=== PATIENT | male | born 1990 | race Caucasian/White ===

== ENCOUNTER 2019-07-05 15:32 | Outpatient (CLI) | payer MEDICARE, SELFPAY ==
--- NOTE | 2019-07-05 | XRR_ITS ---
PROCEDURE INFORMATION: Exam: XR Thoracic Spine, 3 Views Exam date and time: 07/05/2019 4:05 PM Age: 29 years old Clinical indication: Pain in thoracic spine; Additional info: Back pain TECHNIQUE: Imaging protocol: XR of the thoracic spine, 3 views. COMPARISON: No relevant prior studies available. FINDINGS: Vertebrae: Chronic appearing mild anterior wedging deformities are noted in the mid and lower thoracic spine. There are mild diffuse degenerative changes. No acute fracture or bony destruction. Soft tissues: Normal. XR/XR thoracic spine 3V* [id number] IMPRESSION: 1. Chronic appearing mild anterior wedging deformities are noted in the mid and lower thoracic spine. 2. No acute bony abnormality.
--- NOTE | 2019-07-05 | XRR_ITS ---
PROCEDURE INFORMATION: Exam: XR Lumbosacral Spine, 2 or 3 Views Exam date and time: 07/05/2019 4:05 PM Age: 29 years old Clinical indication: Low back pain TECHNIQUE: Imaging protocol: XR of the lumbosacral spine, 2 or 3 views. COMPARISON: No relevant prior studies available. FINDINGS: Vertebrae: There is chronic appearing mild anterior wedging of T11 and T12. No acute fracture. No subluxation. Disc spaces are maintained. Moderate facet degenerative changes are noted in the lower lumbar spine. No acute fracture. No spondylolysis. Soft tissues: Normal. XR/XR lumbar spine 2-3V* [id number] IMPRESSION: There is chronic appearing mild anterior wedging of T11 and T12. No acute bony abnormality.
== END 2019-07-05 15:33 | disposition home or self-care (01) ==
LOC: RAD 15:44
PROVIDERS: Family Provider Nurse Practitioner Family; PCP Nurse Practitioner Family; Visit Provider Nurse Practitioner Family
DX: M54.6 Pain in thoracic spine (principal)
CPT/HCPCS: 72072; 72100

== ENCOUNTER 2023-02-26 18:05 | Emergency (ER) | payer MEDICARE, MEDICAID, SELFPAY ==
[2023-02-26 18:25] VITALS: BP 127/88; PULSE 122; RESP 18; TEMP 36.6; O2SAT 98; BMI 31.3
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
[2023-02-26] MEDS: HYDROcodone-acetaminophen 5-325 mg Tablet 1 TAB PO (19:46)
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
[2023-02-26 21:49] VITALS: BP 124/78; PULSE 110; RESP 18; O2SAT 98
== END 2023-02-26 21:50 | disposition home or self-care (01) ==
PROVIDERS: Emergency Provider Nurse Practitioner Family; Family Provider Nurse Practitioner Family
DX: Z04.1 Encounter for examination and observation following transport accident (principal); S29.012A Strain of muscle and tendon of back wall of thorax, initial encounter; T14.8XXA Other injury of unspecified body region, initial encounter; M17.11 Unilateral primary osteoarthritis, right knee; F17.220 Nicotine dependence, chewing tobacco, uncomplicated; V43.53XA Car driver injured in collision with pick-up truck in traffic accident, initial encounter
CPT/HCPCS: 71046; 73080; 73562; 99284

== ENCOUNTER 2024-02-16 17:18 | Emergency (ER) | payer MEDICARE, MEDICAID, SELFPAY ==
[2024-02-16 17:31] VITALS: BP 151/92; PULSE 87; RESP 16; TEMP 36.7; O2SAT 98; BMI 34.3
--- NOTE | 2024-02-16 18:20 | ED_ITS ---
HPI - Eye Problem General: Chief complaint: Eye Problems Stated complaint: left eye injury Time Seen by Provider: 02/16/24 18:18 Source: patient Mode of arrival: ambulatory Limitations: no limitations History of Present Illness: Patient is a 34-year-old male who presents to ED today with complaint of possible corneal abrasion to his left eye. He states he was weed eating earlier today and felt some grass/debris into his eye. Patient states he was able to irrigate the eye feels like there still may be a scratch. chief complaint: eye pain and foreign body Onset (ago): hour(s) Onset description: sudden Duration: constant Location: left eye Eye Symptoms: pain Place: home Severity: mild Associated symptoms: Reports no associated symptoms Treatments Prior to Arrival: irrigated eye Related Data Previous Rx's Medication Instructions Recorded fluticasone propionate 50 2 spray intranasal DAILY #16 grams 06/15/22 mcg/actuation nasal spray,suspension (Flonase Allergy Relief) hydrocodone 5 mg-acetaminophen 325 1 tab PO Q8H PRN pain (scale score 02/26/23 mg tablet 7-10) #10 tabs ibuprofen 800 mg tablet 800 mg PO Q8H PRN pain #30 tabs 02/26/23 lidocaine 4 % topical patch 1 patch topical TID PRN pain #10 ea 03/04/23 Allergies Allergy/AdvReac Type Severity Reaction Status Date / Time No Known Allergies Allergy Verified 02/03/24 09:28 Review of Systems Eyes: Reports: eye discomfort; Denies: change in vision, blurry vision, blind spots, floaters or seeing flashes PFS ED PFSH: Medical History Seasonal allergies Social History Smoking and tobacco/nicotine status: never used tobacco/nicotine Quit status (tobacco/nicotine): not considering quitting Alcohol intake: current Alcohol intake frequency: holidays/special occasions only Substance/Drug Use: never Physical Exam Const: COMMON NORMALS: no acute distress, average body habitus, no limitations, healthy appearing and well nourished Eye: COMMON NORMALS: Equal, round and reactive pupils present, EOMs intact bilaterally and conjunctivae normal GENERAL EYE: appearance normal, both eyes and all related structures and normal light reflex VISUAL ACUITY: Yes acuity normal ALIGNMENT: Yes alignment normal PERIORBITAL: periorbital findings normal EYELID: eyelids normal CONJUNCTIVA: Yes conjunctivae normal SCLERA: sclerae normal CORNEA: Yes corneas normal and fluorescein used PUPIL: Yes Equal, round and reactive pupils present DIRECT OPHTHALMOSCOPY: Yes normal light reflex Course Vital Signs: Vital signs: Vital Signs Temperature 98.1 F 02/16/24 17:31 Pulse Rate 87 02/16/24 17:31 Respiratory Rate 16 02/16/24 17:31 Blood Pressure 151/92 02/16/24 17:31 Pulse Oximetry 98 02/16/24 17:31 Oxygen Delivery Me thod Room Air 02/16/24 17:31 MDM - Eye Problem Medical Decision Making No abnormal findings on fluorescein staining examination. Tetanus will be updated. Return precautions discussed. Medical Records I reviewed the patient's medical records. No radiology studies performed this visit Discharge Plan Discharge Patient Disposition: Home Clinical Impression: Eye irritation Condition: Stable Prescriptions: No Action lidocaine 4 % adhesive patch,medicated 1 patch topical TID PRN (Reason: pain) Qty: 10 1RF fluticasone propionate [Flonase Allergy Relief] 50 mcg/actuation spray,susp ension 2 spray intranasal DAILY Qty: 16 0RF Rx Instructions: administer into each nostril ibuprofen 800 mg tablet 800 mg PO Q8H PRN (Reason: pain) Qty: 30 0RF hydrocodone-acetaminophen 5-325 mg tablet 1 tab PO Q8H PRN (Reason: pain (scale score 7-10)) Qty: 10 0RF Discharge Orders: Discharge ED (Routine); Ordered 02/16/24 Ordered By: Araceli Brandon Referrals: Lois Brooks FNP [Family Provider] - Activity Restrictions/Additional Instructions: You may seek medical reevaluation for any worsening eye pain, severe redness or purulent drainage, foreign body sensation, visual changes/visual loss, or any other concerns you may have. 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
[2024-02-16] MEDS: tetracaine 0.5% Op Soln 4 mL Btl 1 DROP EYE-LEFT (18:40)
[2024-02-16] MEDS: fluorescein 1 mg Strip EYE-LEFT (18:40)
[2024-02-16] MEDS: tetanus-dipt-pertussis 0.5 mL SDV IM (18:48)
[2024-02-16 18:53] VITALS: BP 127/81; PULSE 78; O2SAT 98
[2024-02-16 19:18] VITALS: BP 121/88; PULSE 94; O2SAT 95
== END 2024-02-16 19:16 | disposition home or self-care (01) ==
PROVIDERS: Emergency Provider Physician Assistant; Family Provider Nurse Practitioner Family
DX: H57.12 Ocular pain, left eye (principal); Z23 Encounter for immunization
CPT/HCPCS: 90715; 99283

== ENCOUNTER 2025-01-05 13:31 | Emergency (ER) | payer MEDICARE, MEDICAID, SELFPAY ==
--- OUTSIDE RECORDS SUMMARY | 2024-12-28 09:58 | XMS_ITS | Encounter Summary ---
[facility] Address [address] [place] [address] Care Team Providers Care Master Merchandiser Name Role Phone Dominic Toure MD Primary Care Provider [phone] Reason for Referral * Radiology Services (Routine) - Closed Specialty Diagnoses / Procedures Referred By Contac t Referred To Contact Radiology Diagnoses Acute diarrhea Nausea and vomiting in adult Epigastric abdominal pain Procedures US ABDOMEN COMPLETE Dominic Toure MD [address] [place] [phone] Phone: tel: fax: [employer] [facility] [place] [address] [place] [address] Phone: tel: fax: Referral ID Status Reason Start Date Expiration Date Visits Re quested Visits Authorized [id number] Closed 12/25/2024 01/25/2026 1 1 Reason for Visit * Radiology Services (Routine) - Closed Specialty Diagnoses / Procedures Referred By Contac t Referred To Contact Radiology Diagnoses Acute diarrhea Nausea and vomiting in adult Epigastric abdominal pain Procedures US ABDOMEN COMPLETE Dominic Toure MD [address] [phone] Phone: tel: [facility]: [facility] [place] [address] [place] [address] Phone: tel: fax: Referral ID Status Reason Start Date Expiration Date Visits Re quested Visits Authorized [id number] Closed 12/25/2024 01/25/2026 1 1 Encounter Details Date Type Department Care Team (Latest Contact Info) Description 12/28/2024 9:58 AM CDT - 12/28/2024 11:59 PM CDT Hospital Encounter [facility] [place] [address] [facility] [address] [place] [phone] Dominic Toure MD [address] [place] [phone] Discharge Disposition: Home or Self Care Social History Tobacco Use Types Packs/Day Years Used Date Smoking Tobacco: Never Smokeless Tobacco: Current Chew Alcohol Use Standard Drinks/Week Comments Not Currently 0 (1 standard drink = 0.6 oz pur e alcohol) Sex and Gender Information Value Date Recorded Sex Assigned at Not on file Legal Sex Male 10:11 AM CDT Gender Identity Not on file Sexual Orientation Not on file documented as of this encounter Medications at Time of Discharge omeprazole (PriLOSEC) 20 mg Capsule, Delayed Release(E.C.)Indic ations:Gastroesoph ageal reflux disease without esophagitis Take 1 Capsule (20 mg) by mouth daily. 30 Capsule 2 12/25/2024 cetirizine (ZyrTEC) 10 mg tabletIndications: Seasonal allergic rhinitis due to pollen Take 1 Tablet (10 mg) by mouth daily. 30 Tablet 2 12/25/2024 famotidine (PEPCID) 20 mg tabletIndications: Gastroesophageal reflux disease without esophagitis TAKE ONE TABLET BY MOUTH TWICE A DAY 180 Tablet 11/29/2024 homeopathic drugs (ALLERGY RELIEF ORAL) Take by mouth. documented as of this encounter Plan of Treatment Upcoming Encounters Date Type Department Care Team (Late st Contact Info) Description 01/05/2025 2:30 PM CDT Appointment [facility] [place] [address] [facility] [address] [place] [phone] Dominic Toure MD [address] [phone] 03/27/2025 1:00 PM CDT Office Visit [facility] [address], [place] [address] Luzmaria Nguyen, OIL SPECULATOR [address] [place] [phone] documented as of this encounter Procedures Procedure Name Priority Date/Time Associated Diagnosis Comments US ABDOMEN COMPLETE Routine 12/28/2024 1 0:41 AM CDT Acute diarrhea Nausea and vomiting in adult Epigastric abdominal pain documented in this encounter Results * US ABDOMEN COMPLETE (12/28/2024 10:41 AM CDT) Anatomical Region Laterality Modality Abdomen Ultrasound 12/28/2024 10:4 1 AM CDT Impressions 12/30/2024 10:03 AM CDT IMPRESSION: Please see below. Exam: US ABDOMEN COMPLETE Date/Time of Exam: 12/28/2024 10:41 AM Reason For Exam: See Diagnosis Diagnosis: Acute diarrhea; Nausea and vomiting in adult; Epigastric abdominal pain Findings: COMPARISON: None. LIVER Normal size, normal echogenicity, normal shape with smooth contour. No concerning hepatic lesion. GALLBLADDER Gallbladder sludge. Wall thickness at 4.4 mm (normal <3mm). Sonographic Rodríguez sign: Negative. BILE DUCTS Common bile duct 3.0 mm. PANCREAS Not well seen due to overlying bowel gas. SPLEEN No focal lesions. Length 12.6 cm. RIGHT KIDNEY Length 12.0 cm Normal size and morphology. No hydronephrosis. No nephrolithiasis. No concerning renal lesion. LEFT KIDNEY Length 11.3 cm Normal size and morphology. No hydronephrosis. No nephrolithiasis. No concerning renal lesion. PERITONEUM / ASCITES Not visualized ABDOMINAL AORTA/IVC IVC unremarkable. The aorta is not visualized. IMPRESSION: 1. Gallbladder sludge with thickened gallbladder wall without sonographic Rodríguez sign. This is not confirmed acute cholecystitis and could represent reactive wall thickening from adjacent hepatic inflammation. Place with LFTs needed. If there is continued concern for acute or chronic cholecystitis, nuclear medicine HIDA scan could be performed. 2. Otherwise unremarkable limited exam as above. Narrative Procedure Note Luis Pitt MD - 12/30/2024 IMPRESSION: Please see below. Exam: US ABDOMEN COMPLETE Date/Time of Exam: 12/28/2024 10:41 AM Reason For Exam: See Diagnosis Diagnosis: Acute diarrhea; Nausea and vomiting in adult; Epigastric abdominal pain Findings: COMPARISON: None. LIVER Normal size, normal echogenicity, normal shape with smooth contour. No concerning hepatic lesion. GALLBLADDER Gallbladder sludge. Wall thickness at 4.4 mm (normal <3mm). Sonographic Rodríguez sign: Negative. BILE DUCTS Common bile duct 3.0 mm. PANCREAS Not well seen due to overlying bowel gas. SPLEEN No focal lesions. Length 12.6 cm. RIGHT KIDNEY Length 12.0 cm Normal size and morphology. No hydronephrosis. No nephrolithiasis. No concerning renal lesion. LEFT KIDNEY Length 11.3 cm Normal size and morphology. No hydronephrosis. No nephrolithiasis. No concerning renal lesion. PERITONEUM / ASCITES Not visualized ABDOMINAL AORTA/IVC IVC unremarkable. The aorta is not visualized. IMPRESSION: 1. Gallbladder sludge with thickened gallbladder wall without sonographic Rodríguez sign. This is not confirmed acute cholecystitis and could represent reactive wall thickening from adjacent hepatic inflammation. Place with LFTs needed. If there is continued concern for acute or chronic cholecystitis, nuclear medicine HIDA scan could be performed. 2. Otherwise unremarkable limited exam as above. Dominic Toure MD US ORDERABLES Final Result documented in this encounter Visit Diagnoses Diagnosis Acute diarrhea Diarrhea Nausea and vomiting in adult Nausea with vomiting Epigastric abdominal pain Abdominal pain, epigastric documented in this encounter Care Teams Master Merchandiser Relationship Specialty Start Date End Date Dominic Toure MD [address] [place] [phone] PCP - General Family Practice 06/01/24 documented as of this encounter
--- OUTSIDE RECORDS SUMMARY | 2025-01-05 10:30 | XMS_ITS | Encounter Summary ---
Author Organization [facility] Address [address] [place] [address] Care Team Providers Care Critical Care Physician Assistant Name Role Phone Dominic Toure MD Primary Care Provider [phone] Reason for Visit * Nuclear Medicine (Routine) - Authorized Specialty Diagnoses / Procedures Referred By Priyank raygoza Referred To Contact Radiology Diagnoses Epigastric abdominal pain Procedures NM HEPATOBILIARY SCAN Dominic Toure MD [address] [phone] Phone: tel: fax: [facility] Nuclear Medicine [address] [place] [phone] Phone: tel: fax: Referral ID Status Reason Start Date Expiration Date Visits Requested Visits Authorized [id number] Authorized SGF CTS to Schedule 01/04/2025 02/18/2025 1 1 Encounter Details Date Type Department Care Team (Late st Contact Info) Description 01/05/2025 10:30 AM CDT Hospital Encounter [facility] Nuclear Medicine [address] [place] [phone] Dominic Toure MD [address] [phone] Social History Tobacco Use Types Packs/Day Years [...] on file documented as of this encounter Plan of Treatment Upcoming Encounters Date Type Department Care Team (Late st Contact Info) Description 01/05/2025 2:30 PM CDT Appointment [facility] [place] [address] [place] [address] Dominic Toure MD [address] [phone] 03/27/2025 1:00 PM CDT Office Visit [facility] [address] [phone] Luzmaria Nguyen FNP [address] [place] [phone] Scheduled Orders Name Type Priority Associated Diagnoses Orde r Schedule NM HEPATOBILIARY SCAN Imaging Routine Epigastric abdominal pain 1 Occurrences starting 01/01/2025 until 01/01/2026 documented as of this encounter Visit Diagnoses Not on filedocumented in this encounter Care Teams Critical Care Physician Assistant Relationship Specialty Start Date End Date Dominic Toure MD [address] [phone] PCP - General Family Practice 06/01/24 documented as of this encounter
[2025-01-05 13:35] VITALS: BP 138/97; PULSE 100; RESP 16; TEMP 36.4; O2SAT 100; BMI 30.2
--- OUTSIDE RECORDS SUMMARY | 2025-01-05 13:36 | XMS_ITS | Encounter Summary ---
Author Organization [facility] Address [address] [place] [address] Care Team Providers Care Engineer Geophysical Laboratory Name Role Phone Dominic Toure MD Primary Care Provider [phone] Reason for Visit * Reason Comments Results Encounter Details Date Type Department Care Team ([facility] st Contact Info) Description 12/29/[address] [facility] Medicine [address] [phone] Dominic Toure MD [address] [place] [phone] Results Social History Tobacco Use Types Packs/Day Years [...] on file documented as of this encounter Miscellaneous Notes * Telephone Encounter - Francy Pacheco LPN - 12/29/2024 11:44 AM CDT Will contact patient when results are available.Francy Pacheco LPN, 12/29/2024 11:45 AM * Telephone Encounter - Mark Sierra - 12/29/2024 11:35 AM CDT Copied from [facility] #[id number]. Topic: CPA Information Request - Results >> Dec 29, 2024 11:33 AM Mark Simon wrote: Caller is requesting information about results from an order. ? Caller Name: Cherelle King () Callback Number: Test Name: US HUIZAR COMPLETE [[id number]] ( (Order [id number]) Results Encounter notes are: Telephone encounter related to results is not available and was completed less than 7 days Call Notes: Results were not given and the patient needs a call back once results have been reviewed. documented in this encounter Plan of Treatment Upcoming Encounters Date Type Department Care Team (Late st Contact Info) Description 01/05/2025 2:30 PM CDT Appointment [facility] CT Scan [place] [address] [place] [address] Dominic Toure MD [address] [phone] 03/27/2025 1:00 PM CDT Office Visit [facility] [address] [place] [phone] Luzmaria Nguyen FNP [address] [place] [phone] documented as of this encounter Visit Diagnoses Not on filedocumented in this encounter Care Teams Engineer Geophysical Laboratory Relationship Specialty Start Date End Date Dominic Toure MD [address] [phone] PCP - General Family Practice 06/01/24 documented as of this encounter
--- OUTSIDE RECORDS SUMMARY | 2025-01-05 13:36 | XMS_ITS | Encounter Summary ---
Author Organization [facility] Address [address] [place] [address] Care Team Providers Care Slitter Helper Name Role Phone Dominic Toure MD Primary Care Provider [phone] Reason for Referral * Nuclear Medicine (Routine) - Authorized Specialty Diagnoses / Procedures Referred By Priyank raygoza Referred To Contact Radiology Diagnoses Epigastric abdominal pain Procedures NM HEPATOBILIARY SCAN Dominic Toure MD [address] [place] [phone] Phone: tel: fax: [facility] Nuclear Medicine [address] [place] [phone] Phone: tel: fax: Referral ID Status Reason Start Date Expiration Date Visits Requested Visits Authorized [id number] Authorized SGF CTS to Schedule 01/04/2025 02/18/2025 1 1 Encounter Details Date Type Department Care Team (Latest Contact Info) Description 12/29/2024 Results Follow-Up [facility] Family Medicine [place] [address] [address] Dominic Toure MD [address] [place] [phone] COMPREHENSIVE METABOLIC PANEL, TRANSGLUTAMINASE IGG ANTIBODY, US ABDOMEN COMPLETE Social History Tobacco Use Types Packs/Day Years [...] encounter Miscellaneous Notes * Telephone Encounter - Shaila Allen LPN - 01/01/2025 12:55 PM CDT 01/01/2025 12:55 PM Called and notified patient of results. Voiced understanding. Patient states that his pain is the same but now he is having trouble where he can't eat due to throwing up. Would like the referral for the HIDA scan placed. Shaila AMANDA * Telephone Encounter - Shaila Allen LPN - 01/01/2025 12:52 PM CDT ----- Message from Nisha Marte sent at 01/01/2025 12:14 PM CDT ----- Per Luis N's need to call on this, result is abnormal. ----- Message ----- From: Shaila Allen LPN Sent: 01/01/2025 10:03 AM CDT To: [facility] [address] Assista# ----- Message ----- From: Dominic Toure MD Sent: 12/31/2024 8:30 PM CDT To: [facility] [address] Nurse Abdominal sono shows some thickening of the gallbladder wall and sludge. These are chronic changes and not likely responsible for acute symptoms. However, if his symptoms are not improving, we may need to order a HIDA to further assess gall bladder. ----- Message ----- From: Ismael Barboza Incoming Radiology Results Sent: 12/30/2024 10:03 AM CDT To: Dominic Toure MD documented in this encounter Plan of Treatment Upcoming Encounters Date Type Department Care Team (Late st Contact Info) Description 01/05/2025 2:30 PM CDT Appointment [facility] CT Scan [place] [address] [place] [phone] Dominic Toure MD [address] [phone] 03/27/2025 1:00 PM CDT Office Visit [facility] [address] [phone] Luzmaria Nguyen, SUZY [address] [place] [phone] Scheduled Orders Name Type Priority Associated Diagnoses Orde r Schedule NM HEPATOBILIARY SCAN Imaging Routine Epigastric abdominal pain 1 Occurrences starting 01/01/2025 until 01/01/2026 documented as of this encounter Visit Diagnoses Diagnosis Epigastric abdominal pain- Primary Abdominal pain, epigastric documented in this encounter Care Teams Slitter Helper Relationship Specialty Start Date End Date Dominic Toure MD [address] [phone] PCP - General Family Practice 06/01/24 documented as of this encounter
--- OUTSIDE RECORDS SUMMARY | 2025-01-05 13:36 | XMS_ITS | Encounter Summary ---
Author Organization [facility] Address [address] [place] [address] Care Team Providers Care Orthopaedic Surgeon Name Role Phone Dominic Toure MD Primary Care Provider [phone] Reason for Referral * CT Scan (Urgent) - Authorized Specialty Diagnoses / Procedures Referred By Priyank raygoza Referred To Contact Radiology Diagnoses Epigastric abdominal pain Acute diarrhea Nausea and vomiting in adult Procedures CT ABDOMEN W CONTRAST Dominic Toure MD [address] [place] [phone] Phone: tel: fax: [facility] [place] [address] [place] [address] Phone: tel: fax: Referral ID Status Reason Start Date Expiration Date V isits Requested Visits Authorized [id number] Authorized 01/05/2025 02/05/2026 1 1 Reason for Visit * Reason Comments Remote Monitoring Patient Communication Encounter Details Date Type Department Care Team (Late st Contact Info) Description 01/03/2025 Telephone [facility] Family Medicine [place] [address] [phone] Dominic Toure MD [address] [phone] Remote Monitoring ; Patient Communication Social History Tobacco Use Types Packs/Day Years [...] Telephone Encounter - Francy Pacheco LPN - 01/05/2025 10:48 AM CDT 01/05/2025 10:48 AM Returned call and spoke with patient. Discussed she states that she feel as we are missing something. His abdomen is hard and the vomiting continues. He hasn't had anything solid to eat for a month now. She states she doesn't feel as though we are getting everything. She states this isnt any gas ans provider states and request CT to be MAHAD. She reports this all started when patient fell off the b ack of a boat about 10-15 feet down. She says he doesn't tell the providers all the information. Order for CT placed. Patient to await call from scheduling. Francy AMANDA * Telephone Encounter - Mark Sierra - 01/05/2025 10:44 AM CDT Copied from [facility] #[id number]. Topic: CPA Information Request >> Jan 05, 2025 10:42 AM Mark Simon wrote: Caller is returning phone call from clinic. Caller Name: Cherelle King () Patient/Caregiver Callback Number: Clinic Left Note In Chart Is there a note from the clinic requesting the caller be transferred when they call back? No Are the credentials of the caregiver who called the patient dental technician? Yes Call Notes: Did not communicate information that is documented in the note because there were not instructions to. Caller needs the clinic to call them back. * Telephone Encounter - Torie Martinez - 01/04/2025 2:16 PM CDT Copied from [facility] #[id number]. Topic: CPA Information Request >> Jan 04, 2025 2:14 PM Torie Hernandez wrote: Caller is returning phone call from clinic. Caller Name: Cherelle, , on [facility] Patient/Caregiver Callback Number: [phone] Clinic Did Not Leave Note In Chart Call Notes: of patient is asking alternate test can be done instead of nuclear medicine test because of cost. She wanted care team to know that his upper left side of abdomen is rock hard. * Telephone Encounter - Jazmin Elizabeth - 01/03/2025 12:30 PM CDT Copied from [facility] #[id number]. Topic: Patient Reported Outcome Metrics >> Jan 03, 2025 12:26 PM Jazmin Joshi wrote: Caller Name: Patient's on phi Callback Number: [phone] Call Notes: Caller is reporting Follow up information from an appointment Patient needs to report copy for test ordered: NM HEPATOBILIARY SCAN Is $200.00. Patient's wanting to know if there is anything else that you could order that would be less expensive. Patient cannot afford the test documented in this encounter Plan of Treatment Upcoming Encounters Date Type Department Care Team (Late st Contact Info) Description 01/05/2025 2:30 PM CDT Appointment [facility] Scan [place] [address] [place] [address] Dominic Toure MD [address] [phone] 03/27/2025 1:00 PM CDT Office Visit [facility] [address] [phone] Luzmaria Nguyen FNP [address] [place] [phone] Scheduled Orders Name Type Priority Associated Diagnoses Orde r Schedule CT ABDOMEN W CONTRAST Imaging Stat Epigastric abdominal pain Acute diarrhea Nausea and vomiting in adult Expected: 01/05/2025, Expires: 01/05/2026 documented as of this encounter Visit Diagnoses Diagnosis Epigastric abdominal pain- Primary Abdominal pain, epigastric Acute diarrhea Diarrhea Nausea and vomiting in adult Nausea with vomiting documented in this encounter Care Teams Orthopaedic Surgeon Relationship Specialty Start Date End Date Dominic Toure MD [address] [place] [phone] PCP - General Family Practice 06/01/24 documented as of this encounter
--- OUTSIDE RECORDS SUMMARY | 2025-01-05 13:36 | XMS_ITS | Clinical Summary ---
Author Organization [facility] Address [address] [address] Care Team Providers Care Pedicab Driver Name Role Phone Dominic Toure MD Primary Care Provider [phone] Allergies No known active allergies Medications homeopathic drugs (ALLERGY RELIEF ORAL) Take by mouth. Active famotidine (PEPCID) 20 mg tabletIndication s:Gastroesophage al reflux disease without esophagitis TAKE ONE TABLET BY MOUTH TWICE A DAY 180 Tablet 11/29/2024 Active omeprazole (PriLOSEC) 20 mg Capsule, Delayed Release(E.C.)Ind ications:Gastroe sophageal reflux disease without esophagitis Take 1 Capsule (20 mg) by mouth daily. 30 Capsule 2 12/25/2024 Active cetirizine (ZyrTEC) 10 mg tabletIndication s:Seasonal allergic rhinitis due to pollen Take 1 Tablet (10 mg) by mouth daily. 30 Tablet 2 12/25/2024 Active Active Problems Problem Noted Date Diagnosed Date Gastroesophageal reflux disease without esophagi tis 12/25/2024 Seasonal allergic rhinitis 12/25/2024 Class 2 obesity due to exces s calories without serious comorbidity with body mass index (BMI) of 36.0 to 36.9 in adult 12/25/2024 Encounters Date Type Department Care Team Description 01/05/2025 10:30 AM CDT Hospital Encounter [facility] Nuclear Medicine [facility] [place] [phone] Dominic Toure MD 01/03/2025 Telephone [facility] [address] [phone] Dominic Toure MD Remote Monitoring ; Patient Communication 12/29/2024 Results Follow-Up [facility] [place] [address] [address] Dominic Toure MD COMPREHENSIVE METABOLIC PANEL, TRANSGLUTAMINASE IGG ANTIBODY, US ABDOMEN COMPLETE 12/29/[address] [phone] Dominic Toure MD Results 12/28/2024 9:58 AM CDT - 12/28/2024 11:59 PM CDT Hospital Encounter [facility] Ultrasound [place] [address] [place] [address] Dominic Toure MD Discharge Disposition: Home or Self Care 12/25/2024 1:00 PM CDT Office Visit [address] [phone] Dominic Toure MD Acute diarrhea (Primary Dx); Nausea and vomiting in adult; Epigastric abdominal pain; Gastroesophageal reflux disease without esophagitis; Seasonal allergic rhinitis due to pollen; Class 2 obesity due to excess calories without serious comorbidity with body mass index (BMI) of 36.0 to 36.9 in adult 12/22/[address] [phone] Dominic Toure MD Medication Assistance 11/29/[address] [phone] Sabine Mckeon FNP Gastroesophageal reflux disease without esophagitis from Last 3 Months Family History Medical History Relation Name Comments No Known Problems Father Relation Name Status Comments Father Alive Social History Tobacco Use Types Packs/Day Years Used Date Smoking Tobacco: Never Smokeless Tobacco: Current Chew Tobacco Cessation:Ready to Q uit: Not Asked; Counseling Given: Not Answered Alcohol Use Standard Drinks/Week Comments Not Currently 0 (1 standard drink = 0.6 oz pur e alcohol) Sex and Gender Information Value Date Recorded Sex Assigned at Not on file Legal Sex Male 10:11 AM CDT Gender Identity Not on file Sexual Orientation Not on file Last Filed Vital Signs Vital Sign Reading Time Taken Comments Blood Pressure 106/62 12/25/2024 12:51 PM CDT Pulse 80 12/25/2024 12:51 PM CDT Temperature 36.7 C (98 F) 12/25/2024 12:51 PM CDT Respiratory Rate 18 12/25/2024 12:51 PM CDT Oxygen Saturation 98% 12/25/2024 12:51 PM CDT Inhaled Oxygen Concentration - - Weight 93.1 kg (205 lb 3.2 oz) 12/25/2024 12:51 PM CDT Height 160 cm (5' 3 ) 12/25/2024 12:51 PM CDT Body Mass Index 36.35 12/25/2024 12:51 PM CDT Plan of Treatment Upcoming Encounters Date Type Department Care Team (Late st Contact Info) Description 01/05/2025 2:30 PM CDT Appointment [facility] CT Scan [place] [address] [place] [phone] Dominic Toure MD [address] [phone] 03/27/2025 1:00 PM CDT Office Visit [facility] Medicine [place] [address] [phone] Luzmaria Nguyen FNP [address] [place] [phone] Health Maintenance Due Date Last Done Comments HPV VACCINES (1 - Male 3-dose series) 01/24/2004 DTAP/TDAP/TD VACCINES (1 - Tdap) 01/24/2008 HEPATITIS B VACCINES (1 of 3 - 19+ 3-dose series) 01/05 [place] Prev entative Visit/Annual Wellness Visit 06/07/2024 03/09/2024 INFLUENZA VACCINE (#1) 2025 03/09/2024 Pre-Diabetes and Diabetes Screening 03/09/202703/09 Procedures Procedure Name Priority Date/Time Associated Diagnosis Comments US ABDOMEN COMPLETE Routine 12/28/2024 1 0:41 AM CDT Acute diarrhea Nausea and vomiting in adult Epigastric abdominal pain TRANSGLUTAMINASE IGG ANTIBODY Routine 12/25/2024 1:12 PM CDT Acute diarrhea Nausea and vomiting in adult Epigastric abdominal pain COMPREHENSIVE METABOLIC PANEL Routine 12/25/2024 1:12 PM CDT Acute diarrhea HEMOGLOBIN A1C Routine 03/09/2024 10:01 AM CDT Encounter for routine adult physical exam with abnormal findings from Last 3 Months or Most Recently Relevant to Health Maintenance Results * US ABDOMEN COMPLETE (12/28/2024 10:41 [...] 2. Otherwise unremarkable limited exam as above. us Dominic Toure MD US ORDERABLES Final Result * TRANSGLUTAMINASE IGG ANTIBODY (12/25/2024 1:12 PM CDT) TRANSGLUTAMINASE IGG AB <1.0 U/mL [facility] Comment: Value Interpretation ----- <15.0 Antibody not detected > or = 15.0 Antibody detected FASTING:NO FASTING: NO Test Performed at: [facility] [address] [place] [address] Avni Dickey Blood 12/25/2024 1:12 PM CDT 12/25/2024 1:12 PM CDT us Dominic Toure MD CHEMISTRY ORDERABLES Final Resul t [facility] [address] [phone] [facility] [address] [place] [address] * COMPREHENSIVE METABOLIC PANEL (12/25/2024 1:12 PM CDT) GLUCOSE 84 65 - 139 mg/dL [facility] Comment: Non-fasting reference interval BUN 11 7 - 25 mg/dL [facility] CREATININE 0.95 0.60 - 1.26 mg/dL [facility] GFR 107 > OR = 60 mL/min/1. 73m2 [facility] BUN/CREAT RATIO SEE NOTE: 6 - 22 (calc) [facility] Comment: Not Reported: BUN and Creatinine are within reference range. SODIUM 140 135 - 146 mmol/L [facility] POTASSIUM 3.8 3.5 - 5.3 mmol/L [facility] CHLORIDE 106 98 - 110 mmol/L [facility] CO2 28 20 - 32 mmol/L [facility] CALCIUM 9.2 8.6 - 10.3 mg/dL [facility] TOTAL PROTEIN 7.1 6.1 - 8.1 g/dL [facility] ALBUMIN 4.5 3.6 - 5.1 g/dL [facility] GLOBULIN 2.6 1.9 - 3.7 g/dL (calc) [facility] ALBUMIN/GLOBULIN RATIO 1.7 1.0 - 2.5 (calc) [facility] BILIRUBIN TOTAL 0.6 0.2 - 1.2 mg/dL [facility] ALKALINE PHOSPHATASE 73 36 - 130 U/L [facility] AST 22 10 - 40 U/L [facility] ALT 33 9 - 46 U/L [facility] Comment: FASTING:NO FASTING: NO Test Performed at: [facility] [address] [facility] [place] [address] Goldie Dillard MD Blood 12/25/2024 1:12 PM CDT 12/25/2024 1:12 PM CDT us Dominic Toure MD CHEMISTRY ORDERABLES Final Resul t Performing Organization Address [facility] Co de Phone Number [facility] [phone] [facility] [address] [place] [address] * HEMOGLOBIN A1C (03/09/2024 10:01 AM CDT) HEMOGLOBIN A1C 5.3 <5.7 % of total Hgb [facility] Comment: For the purpose of screening for the presence of diabetes: <5.7% Consistent with the absence of diabetes 5.7-6.4% Consistent with increased risk for diabetes (prediabetes) > or =6.5% Consistent with diabetes This assay result is consistent with a decreased risk of diabetes. Currently, no consensus exists regarding use of hemoglobin A1c for diagnosis of diabetes in children. According to [place] Diabetes Association (ADA) guidelines, hemoglobin A1c <7.0% represents optimal control in non- diabetic patients. Different metrics may apply to specific patient populations. Standards of Medical Care in Diabetes(ADA). ESTIMATED AVERAGE GLUCOSE (MG/DL) 105 mg/dL [facility] ESTIMATED AVERAGE GLUCOSE (MMOL/L) 5.8 mmol/L [facility] Comment: FASTING:NO FASTING: NO Test Performed at: [facility] [address] [place] [address] [place] [address] Goldie Dillard MD Blood 03/09/2024 10:0 1 AM CDT 03/09/2024 10:02 AM CDT us Sabine ALMONTE CHEMISTRY ORDERABLES Final Re sult Performing Organization Address City/[facility]/ZIP Co de Phone Number [facility] [address] [phone] [facility] [address] [place] [address] from Last 3 Months or Most Recently Relevant to Health Maintenance Insurance [facility] [id number] Care Teams Pedicab Driver Relationship Specialty Start Date End Date Dominic Toure MD [address] [place] [phone] PCP - General Family Practice 06/01/24
--- OUTSIDE RECORDS SUMMARY | 2025-01-05 13:36 | XMS_ITS | Encounter Summary ---
Author Organization [facility] Address [address] [place] [address] Care Team Providers Care Radiation Engineer Name Role Phone Dominic Toure MD Primary Care Provider [phone] Reason for Visit * Reason Comments Medication Assistance Encounter Details Date Type Department Care Team (Late st Contact Info) Description 12/22/2024 Telephone [facility] Medicine [address] [phone] Dominic Toure MD [address] [place] [phone] Medication Assistance Social History Tobacco Use Types Packs/Day Years [...] Telephone Encounter - Francy Pacheco LPN - 12/22/2024 4:47 PM CDT I did not schedule appointment because they didn't want to come in. Appointment has now been made. ER was advised. Patient is requesting something for nausea until appointment on Wednesday.Francy Pacheco LPN, 12/22/2024 4:48 PM * Telephone Encounter - Francy Pacheco LPN - 12/22/2024 4:46 PM CDT 12/22/2024 4:46 PM Returned call and spoke with patient. Discussed patient scheduled for visit with Sabine on 12/25/24. Francy AMANDA * Telephone Encounter - Francy Pacheco LPN - 12/22/2024 12:37 PM CDT 12/22/2024 12:37 PM Returned call and spoke with patient and Cherelle. Discussed patient is having stomach pain especially after he consumes a meal. He states he also has mucous in his stools. Patient is requesting something for nausea be sent into pharmacy as he has severe nausea. Advised patient about food allergies. They state they never got any results. Advised patient needs to see Malt House Operator per Sabine. They states Referral was never sent in for him. . Francy AMANDA * Telephone Encounter - Velia Garcia - 12/22/2024 12:32 PM CDT Copied from [facility] #[id number]. Topic: Medication Request >> Dec 22, 2024 12:28 PM Velia Joshi wrote: Caller Name: Cherelle- on phi Callback Number: Telephone Information: Medication (Ask patient/caregiver to spell if possible): something for stomach/vomiting/bowels-possibly anti nausea pill Note: All medication prescriptions can be requested using one [facility] Preferred Pharmacy: The patient's preferred pharmacy is [facility] [place], [place] - [address] [facility] Call Notes: Caller is requesting a new medication, which is not active on their medication list. The patient has been vomiting and having loose mucous stools, and unable to eat. Patient is - Not High Risk Are you currently experiencing any symptoms? Yes, and has been seen by provider for the symptom(s) - alpha gal, but patient is stick with chicken as well. Is there an encounter open? No documented in this encounter Plan of Treatment Upcoming Encounters Date Type Department Care Team (Late st Contact Info) Description 01/05/2025 2:30 PM CDT Appointment [facility] CT Scan [place] [address] [place] [phone] Dominic Toure MD [address] [phone] 03/27/2025 1:00 PM CDT Office Visit [facility] [address] [place] [phone] Luzmaria Nguyen FNP [address] [phone] documented as of this encounter Visit Diagnoses Not on filedocumented in this encounter Care Teams Radiation Engineer Relationship Specialty Start Date End Date Dominic Toure MD [address] [phone] PCP - General Family Practice 06/01/24 documented as of this encounter
--- NOTE | 2025-01-05 13:50 | W.ED.ABDPA2 ---
HPI - Abdominal Pain General: Chief Complaint: Abdominal Pain Stated Complaint: NV / abd pain (1month) Time Seen by Provider: 01/05/25 13:32 History of Present Illness: 34-year-old male presents emergency room he is intermittently had abdominal pain for the last several weeks. It radiates into his back. He states pain is worse when he eats he has had outpatient evaluation for gallbladder disease they told him he had sludge but no acute cholecystitis last day or 2 weeks that increasing abdominal pain no focal to the right lower quadrant he still has loss of appetite no dysuria urgency or frequency no hematochezia no hematemesis coffee-ground emesis Associated Symptoms: Denies chills, dysuria and fever(s) Related Data Home Medications ?Medication ?Instructions ?Recorded ?Confirmed cetirizine 10 mg tablet 10 mg PO DAILY 01/05/25 01/05/25 famotidine 20 mg tablet 20 mg PO BID 01/05/25 01/05/25 fluticasone propionate 50 2 spray intranasal DAILY PRN 01/05/25 01/05/25 mcg/actuation nasal allergies spray,suspension (Flonase Allergy Relief) omeprazole 20 mg capsule,delayed 20 mg PO DAILY 01/05/25 01/05/25 release Allergies Allergy/AdvReac Type Severity Reaction Status Date / Time No Known Allergies Allergy Verified 01/05/25 13:39 Review of Systems Const: Denies: fever(s) or chills Card: Denies: chest pain Resp: Denies: dyspnea GI: Denies: abdominal pain : Denies: dysuria, urinary frequency or urinary urgency Musc: Denies: neck pain or back pain Skin/Breast: Denies: rash PFSH ED PFSH: Medical History Seasonal allergies Social History Smoking and tobacco/nicotine status: never used tobacco/nicotine Quit status (tobacco/nicotine): not considering quitting Alcohol intake: current Alcohol intake frequency: holidays/special occasions only Substance/Drug Use: never Physical Exam Const: GENERAL APPEARANCE: cooperative ORIENTATION/CONSCIOUSNESS: Yes awake, Yes oriented to person, Yes oriented to place and Yes oriented to time HENMT: COMMON NORMALS: normocephalic, atraumatic and hearing grossly normal bilaterally HEAD & SCALP: normocephalic and atraumatic Resp: COMMON NORMALS: normal respiratory effort, No retractions, No use of accessory muscles and clear to auscultation bilaterally AUSCULTATION: clear to auscultation bilaterally Cardio: COMMON NORMALS: regular rate, regular rhythm and No murmurs present (Cardio) RATE: regular rate RHYTHM: regular rhythm GI: AUSCULTATION: Yes normoactive bowel sounds PALPATION: Yes Tenderness to palpation present (GI) and Yes Guarding due to palpation present (GI) in the RLQ Extremity: COMMON NORMALS: normal to inspection, capillary refill normal, no clubbing, cyanosis or edema, no calf tenderness and no pedal edema Neuro: SENSORIUM/ORIENTATION: Yes oriented to person, Yes oriented to place and Yes oriented to time Skin: COMMON NORMALS: no rashes or lesions noted GENERAL SKIN EXAM: no rashes or lesions noted Course Vital Signs: Vital signs: Vital Signs Temperature 97.5 F L 01/05/25 13:35 Pulse Rate 82 01/05/25 16:14 Respiratory Rate 16 01/05/25 13:35 Blood Pressure 141/92 01/05/25 16:14 Pulse Oximetry 100 01/05/25 16:14 Oxygen Delivery Me thod Room Air 01/05/25 16:14 MDM - Abdominal Pain Medical Decision Making No leukocytosis CT shows acute appendicitis. Patient given Zosyn. Unfortunately do not have general surgery coverage what to check and transfer the patient for surgical care. Patient asked to be transferred emergency [place]. [facility] surgeon has agreed to accept the patient at [facility] in [place]. They ask ER to ER transfer to Dr. Rivera will be transferred via [facility] ambulance. Lab Data 01/05/25 14:07 01/05/25 14:07 Labs/Radiology: Radiology Impressions Abdomen/Pelvis CT 01/05/25 13:56 IMPRESSION: 1. Mild fluid dilatation with enhancement of the appendix with slight surrounding induration suspicious for acute early appendicitis. Maximum transverse dimension measures 8 mm. 2. No fluid collections or free air. 3. Tiny esophageal hernia. 4. Tiny fat-containing umbilical hernia. 5. Sigmoid diverticulosis. Laboratory Results WBC 8.94 10^3/uL (3.29-11.43) 01/05/25 14:07 RBC 5.45 10^6/uL (3.85-5.65) 01/05/25 14:07 Hgb 15.00 g/dL (11.27-16.99) 01/05/25 14:07 Hct 46.1 % (37-53) 01/05/25 14:07 MCV 84.6 fl (82-101) 01/05/25 14:07 MCH 27.5 pg (27-33) 01/05/25 14:07 MCHC 32.5 g/dL (30-55) 01/05/25 14:07 RDW 12.7 % (12.1-15.1) 01/05/25 14:07 Plt Count 272 10^3/cmm (157-399) 01/05/25 14:07 MPV 10.5 fL (7.4-10.4) H 01/05/25 14:07 Neut % (Auto) 46.1 % 01/05/25 14:07 Lymph % (Auto) 36.0 % 01/05/25 14:07 [place] % (Auto) 6.0 % 01/05/25 14:07 Eos % (Auto) 10.1 % 01/05/25 14:07 Baso % (Auto) 1.6 % 01/05/25 14:07 Neut # (Auto) 4.12 10^3/uL (1.8-7.7) 01/05/25 14:07 Lymph # (Auto) 3.2 10^3/uL (0.8-4.8) 01/05/25 14:07 [place] # (Auto) 0.5 10^3/uL (0.2-0.9) 01/05/25 14:07 Eos # (Auto) 0.9 10^3/uL (0.0-0.8) H 01/05/25 14:07 Baso # (Auto) 0.1 10^3/uL (0.0-0.1) 01/05/25 14:07 Nucleated RBC % (auto) 0 % 01/05/25 14:07 Nucleated RBCs # 0.0 /100WBC 01/05/25 14:07 Sodium 137 mmol/L (136-145) 01/05/25 14:07 Potassium 4.0 mmol/L (3.5-5.1) 01/05/25 14:07 Chloride 101 mmol/L (98-107) 01/05/25 14:07 Carbon Dioxide 24 mmol/L (22-29) 01/05/25 14:07 Anion Gap 16.0 (5-19) 01/05/25 14:07 BUN 9 mg/dL (6-20) 01/05/25 14:07 Creatinine 0.9 mg/dL (0.7-1.2) 01/05/25 14:07 GFR Calculation 96.0 mL/min (90-130) 01/05/25 14:07 Glucose 96 mg/dL (65-115) 01/05/25 14:07 Calculated Osmolality 283 mOsm/kg (285-295) L 01/05/25 14:07 Calcium 9.1 mg/dL (8.5-10.5) 01/05/25 14:07 Total Bilirubin 0.4 mg/dL (0.15-1.2) 01/05/25 14:07 AST 20 U/L (0-40) 01/05/25 14:07 ALT 31 U/L (0-41) 01/05/25 14:07 Alkaline Phosphatase 83 U/L (40-130) 01/05/25 14:07 Total Protein 7.6 g/dL (6.6-8.7) 01/05/25 14:07 Albumin 4.3 g/dL (3.5-5.2) 01/05/25 14:07 Globulin 3.3 g/dL (1.3-4.6) 01/05/25 14:07 Lipase 30 U/L (13-60) 01/05/25 14:07 Urine Color Yellow (Yellow) 01/05/25 15:24 Urine Appearance Clear (CLEAR) 01/05/25 15:24 Urine pH 8.0 (5-7) A 01/05/25 15:24 Ur Specific [place] 1.070 (1.005-1.030) H 01/05/25 15:24 Urine Protein Negative (Negative) 01/05/25 15:24 Urine Glucose (UA) Negative (Normal) 01/05/25 15:24 Urine Ketones Negative (Negative) 01/05/25 15:24 Urine Blood Negative (Negative) 01/05/25 15:24 Urine Nitrate Negative (Negative) 01/05/25 15:24 Urine Bilirubin Negative (Negative) 01/05/25 15:24 Urine Urobilinogen 0.2 mg/dL (Negative) 01/05/25 15:24 Ur Leukocyte Esterase Negative (Negative) 01/05/25 15:24 Urine RBC 0-2 /hpf (0-2) 01/05/25 15:24 Urine WBC 0-5 /hpf (0-5) 01/05/25 15:24 Ur Squamous Epith Cells 0-5 /hpf (0-5) 01/05/25 15:24 Amorphous Sediment Not Reportable 01/05/25 15:24 Urine Bacteria None seen /hpf (NONE) 01/05/25 15:24 Hyaline Casts 0-4 /lpf H 01/05/25 15:24 All radiology interpretation(s) finalized by discharge Discharge Plan Discharge Patient Disposition: Xfer Short-Term Hosp Clinical Impression: Acute appendicitis Condition: Stable Referrals: Jovany Vivar MD [Primary Care Provider, Family Practice] Patient Instructions: Appendicitis (GEN) Print Language: Yi Coding Level of Care Code ED [employer] Operator for Talisha Martin
--- NOTE | 2025-01-05 13:56 | CT_ITS ---
WS: [id number] CT ABDOMEN PELVIS TECHNIQUE: Contrast-enhanced CT of the abdomen and pelvis with coronal and sagittal reformatted images. CLINICAL INFORMATION: abd pain COMPARISON: CT 2011 DLP: 758.[address] scans at [facility] use at least one of these dose optimization techniques: automated exposure control; mA and/or kV adjustment per patient size (includes targeted exams where dose is matched to clinical indication); or iterative reconstruction. FINDINGS: Diffuse fatty infiltration of the liver. Normal gallbladder. Normal portal vein and splenic vein. Normal spleen. Normal pancreatic parenchymal enhancement. Tiny esophageal hiatal hernia. Normal caliber abdominal aorta. Celiac and SMA are patent. Lung bases are well aerated. Adrenal glands are normal. Normal renal parenchymal enhancement. No hydronephrosis. Small LEFT renal cyst. Tiny fat- containing umbilical hernia. Sigmoid diverticulosis. Mild fluid distention and enhancing appendix extending to the appendiceal tip. Appendix measures approximately 8 mm in maximum transverse dimension. Minimal surrounding induration. Findings suspicious for early acute appendicitis. No fluid collections. No free air. Appendix was normal and decompressed in 2010. CT/CT abdomen pelvis w con* [id number] IMPRESSION: 1. Mild fluid dilatation with enhancement of the appendix with slight surround ing induration suspicious for acute early appendicitis. Maximum transverse dime nsion measures 8 mm. 2. No fluid collections or free air. 3. Tiny esophageal hernia. 4. Tiny fat-containing umbilical hernia. 5. Sigmoid diverticulosis.
[2025-01-05 14:27] LABS: Hematocrit 46.1 % (37-53); Hemoglobin 15.00 g/dL (11.27-16.99); Mean Corpuscular HGB Conc 32.5 g/dL (30-55); Mean Corpuscular Hemoglobin 27.5 pg (27-33); Mean Corpuscular Volume 84.6 fl (82-101); Nucleated Red Blood Cells % 0 %; Platelet Count 272 10^3/cmm (157-399); Red Blood Count 5.45 10^6/uL (3.85-5.65); White Blood Count 8.94 10^3/uL (3.29-11.43)
[2025-01-05] MEDS: iohexol 350 mg/mL 500 mL Btl (per mL) IV (14:46)
[2025-01-05 14:49] LABS: Alanine Aminotransferase 31 U/L (0-41); Albumin Level 4.3 g/dL (3.5-5.2); Alkaline Phosphatase 83 U/L (40-130); Anion Gap 16.0 (5-19); Aspartate Amino Transferase 20 U/L (0-40); Blood Urea Nitrogen 9 mg/dL (6-20); Calcium 9.1 mg/dL (8.5-10.5); Carbon Dioxide 24 mmol/L (22-29); Chloride 101 mmol/L (98-107); Creatinine Clr Calc Pharmacy 129.0048; Globulin 3.3 g/dL (1.3-4.6); Glucose 96 mg/dL (65-115); Lipase 30 U/L (13-60); Osmolality Calculated 283 mOsm/kg (285-295); Potassium 4.0 mmol/L (3.5-5.1); Sodium 137 mmol/L (136-145); Total Protein 7.6 g/dL (6.6-8.7)
[2025-01-05] MEDS: ondansetron 2 mg/ML SDV 2 mL 4 MG IVP ×2 (15:33→20:54)
[2025-01-05 15:47] LABS: Glucose Urine UA Negative (Normal); Nitrate Urine Negative (Negative)
[2025-01-05 15:52] LABS: Add Urine Microscopic? YES
[2025-01-05 15:59] LABS: Specific Gravity, Urine 1.070 (1.005-1.030)
[2025-01-05] MEDS: piperacillin-tazobactam 3.375 GM in sodium chloride 0.9% (plus) 50 ML IV (16:06)
[2025-01-05 16:14] VITALS: BP 141/92; PULSE 82; O2SAT 100
[2025-01-05 18:04] VITALS: BP 119/79; PULSE 63; RESP 18; O2SAT 99
[2025-01-05] MEDS: morphine 4 mg/mL SDV 1 mL IVP (20:54)
[2025-01-05 20:55] VITALS: BP 121/90; PULSE 71; O2SAT 98
== END 2025-01-05 21:00 | disposition short-term general hospital (02) ==
PROVIDERS: Physician Assistant; Emergency Provider Family Medicine
DX: K35.80 Unspecified acute appendicitis (principal)
CPT/HCPCS: 36416; 74177; 80053; 81001; 82962; 83690; 85025; 96365; 96375; 96376; 99285; J2270; J2405; J2543; J7030